=== PATIENT | female | born 1940 | race Caucasian/White ===

== ENCOUNTER 2020-04-23 11:04 | Inpatient (IN) | payer MEDICARE ==
[~2020-04-23] VITALS: Ht 162.6 cm; Wt 104.3 kg
[2020-04-23] MEDS ORDERED: LACTATED RINGER'S 1,000 ML INJ ONE (11:15)
[2020-04-23 11:36] LABS: BASOPHILS # (AUTO) 0.1 (0.0-0.1); BASOPHILS % 0.5 % (0.0-1.0); EOSINOPHILS # (AUTO) 0.7 (0.0-0.4); EOSINOPHILS % 6.3 % (0.0-6.0); HEMATOCRIT 44.2 % (34.2-44.1); HEMOGLOBIN 14.8 g/dL (12.0-16.0); LYMPHOCYTES % 9.1 % (18.0-39.1); MEAN CORPUSCULAR HEMOGLOBIN 31.4 pg (28-32); MEAN CORPUSCULAR HGB CONC 33.5 g/dL (31-35); MEAN CORPUSCULAR VOLUME 93.8 fL (81-99); MONOCYTES # (AUTO) 0.9 (0.2-0.8); MONOCYTES % 8.8 % (4.4-11.3); NEUTROPHILS # (AUTO) 7.9 (2.1-6.9); NEUTROPHILS % 74.8 % (38.7-80.0); PLATELET COUNT 261 x10e3/uL (140-360); RED BLOOD COUNT 4.71 x10e6/uL (3.6-5.1); RED CELL DISTRIBUTION WIDTH 13.4 % (11.7-14.4)
[2020-04-23] MEDS ORDERED: CEFTRIAXONE SOD 1 GM 50 ML IV ONE (11:45)
[2020-04-23 11:48] LABS: INR 0.92; PROTHROMBIN TIME 12.9 seconds (11.9-14.5)
[2020-04-23 11:58] LABS: ALBUMIN 4.1 g/dL (3.5-5.0); ALBUMIN/GLOBULIN RATIO 0.9 (0.8-2.0); ANION GAP 18.3 mmol/L (8-16); CALCIUM 10.5 mg/dL (8.4-10.2); CREATININE, SERUM 1.01 mg/dL (0.57-1.11); POTASSIUM 4.3 mmol/L (3.5-5.1)
[2020-04-23 11:58] LABS: CLARITY,URINE CLEAR (CLEAR); COLOR,URINE YELLOW (YELLOW); KETONES,URINE NEGATIVE (NEGATIVE); LEUKOCYTE ESTERASE ,URINE NEGATIVE (NEGATIVE); NITRITE,URINE NEGATIVE (NEGATIVE); PROTEIN,URINE DIPSTICK 2+ (NEGATIVE); URINE UROBILINOGEN 0.2 mg/dL (0.2 - 1)
[2020-04-23 12:00] LABS: BACTERIA,URINE RARE /HPF; EPITHELIAL CELLS,URINE FEW /LPF; MUCUS,URINE FEW (RARE); TRANSITIONAL EPI CELLS,URINE FEW
[2020-04-23] MEDS ORDERED: CEFTRIAXONE SOD 1 GM in SODIUM CHLORIDE 0.9% 50ML 50 ML IV ONE (12:00)
[2020-04-23] MEDS: SODIUM CHLORIDE 0.9% 1000ML 1,000 ML IV SCH ×2 (14:05→15:48)
[2020-04-23 16:11] VITALS: BP 177/79
[2020-04-23] MEDS ORDERED: ULTRAM50 MG PO (16:29)
[2020-04-23] MEDS ORDERED: ATORVASTATIN CA20 MG PO (16:29)
[2020-04-23] MEDS ORDERED: HYDROCHLOROTHIA25 MG PO (16:29)
[2020-04-23] MEDS ORDERED: OXYBUTYNIN CHLOR5 M1 PO (16:29)
[2020-04-23] MEDS ORDERED: CHONDROITIN SU100 GM PO (16:29)
[2020-04-23] MEDS ORDERED: ASPIRIN CHEW81 MG PO (16:29)
[2020-04-23] MEDS ORDERED: ZESTRIL40 MG PO (16:29)
[2020-04-23] MEDS ORDERED: DEPAKOTE ER500 MG PO (16:29)
[2020-04-23] MEDS ORDERED: AMLODIPINE BESY10 MG PO (16:29)
[2020-04-23] MEDS ORDERED: LISINOPRIL20 MG PO (16:29)
[2020-04-23] MEDS ORDERED: MACROBID 100 M100 MG PO (16:29)
[2020-04-23] MEDS ORDERED: OLANZAPINE5 MG PO (16:29)
[2020-04-23] MEDS ORDERED: PROPRANOLOL HCL40 MG PO (16:29)
[2020-04-23] MEDS ORDERED: NAMENDA10 MG PO (16:29)
[2020-04-23 16:31] VITALS: BP 177/79
[2020-04-23] MEDS: PROPRANOLOL HCL 40 MG TAB PO SCH (17:29)
[2020-04-23] MEDS: TRAMADOL HCL 50 MG TAB PO PRN (17:29)
[2020-04-23] MEDS ORDERED: ACETAMINOPHEN 325 MG TAB PO PRN (18:45)
[2020-04-23] MEDS ORDERED: ONDANSETRON HCL INJ 2MG/ML 2ML 2 MG/ML VIAL IV PRN (19:30)
[2020-04-23] MEDS ORDERED: HYDRALAZINE HCL 20 MG/ML VIAL IV PRN (19:30)
[2020-04-23] MEDS ORDERED: CEFTRIAXONE SOD 1 GM in SODIUM CHLORIDE 0.9% 50ML 50 ML IV SCH (19:45)
[2020-04-23 20:14] VITALS: BP 140/75
[2020-04-23 20:24] VITALS: BP 140/75
[2020-04-23] MEDS: DEPAKOTE DELAYED-RELEASE TAB 500 MG PO SCH (21:05)
[2020-04-23] MEDS: OXYBUTYNIN CHLORIDE XL 5 MG TAB PO SCH (21:05)
[2020-04-23] MEDS: MEMANTINE 10 MG TAB PO SCH (21:05)
[2020-04-23] MEDS: ATORVASTATIN 20 MG TAB PO SCH (21:05)
[2020-04-23] MEDS: LISINOPRIL 20 MG TAB PO SCH (21:05)
[2020-04-23] MEDS: OLANZAPINE 5 MG TAB PO SCH (21:06)
[2020-04-24] VITALS (8 sets, daily range): BP systolic 109–156; BP diastolic 48–84
[2020-04-24] MEDS: CEFTRIAXONE SOD 1 GM in SODIUM CHLORIDE 0.9% 50ML 50 ML IV SCH (08:19)
[2020-04-24] MEDS: ASPIRIN 81 MG CHEW TAB PO SCH (08:28)
[2020-04-24] MEDS: PROPRANOLOL HCL 40 MG TAB PO SCH ×2 (08:28→16:59)
[2020-04-24] MEDS: AMLODIPINE BESYLATE 10 MG TAB PO SCH (08:28)
[2020-04-24] MEDS: HYDROCHLOROTHIAZIDE 25 MG TAB PO SCH (08:28)
[2020-04-24] MEDS: DEPAKOTE DELAYED-RELEASE TAB 500 MG PO SCH ×3 (08:28→21:31)
[2020-04-24] MEDS ORDERED: LISINOPRIL 20 MG TAB PO SCH (09:00)
[2020-04-24] MEDS ORDERED: FAMOTIDINE 20 MG TAB PO ONE (14:15)
[2020-04-24] MEDS ORDERED: SODIUM CHLORIDE 0.9% 1000ML 1,000 ML IV ONE (15:30)
[2020-04-24] MEDS ORDERED: IOPAMIDOL 370 MG/ML 200 ML INFUS..BTL INJ ONE ×2 (16:08→17:24)
[2020-04-24] MEDS ORDERED: SODIUM CHLORIDE 0.9% 50ML 50 ML ONE ×2 (16:08→17:24)
[2020-04-24 16:09] LABS: AMYLASE 33 U/L (25-125); LIPASE 10 U/L (8-78)
[2020-04-24] MEDS ORDERED: ONDANSETRON HCL 4 MG ORAL DISINTEGRATING TAB PO PRN (19:15)
[2020-04-24] MEDS: OLANZAPINE 5 MG TAB PO SCH (21:31)
[2020-04-24] MEDS: ATORVASTATIN 20 MG TAB PO SCH (21:31)
[2020-04-24] MEDS: MEMANTINE 10 MG TAB PO SCH (21:31)
[2020-04-24] MEDS: OXYBUTYNIN CHLORIDE XL 5 MG TAB PO SCH (21:31)
[2020-04-24] MEDS: LISINOPRIL 20 MG TAB PO SCH (21:32)
[2020-04-25] VITALS (8 sets, daily range): BP systolic 122–157; BP diastolic 54–85
[2020-04-25] MEDS: TRAMADOL HCL 50 MG TAB PO PRN (04:30)
[2020-04-25 05:03] LABS: BASOPHILS # (AUTO) 0.1 (0.0-0.1); BASOPHILS % 1.1 % (0.0-1.0); EOSINOPHILS # (AUTO) 0.8 (0.0-0.4); EOSINOPHILS % 10.4 % (0.0-6.0); HEMATOCRIT 38.4 % (34.2-44.1); HEMOGLOBIN 12.8 g/dL (12.0-16.0); LYMPHOCYTES # (AUTO) 2.1 (1.0-3.2); LYMPHOCYTES % 28.4 % (18.0-39.1); MEAN CORPUSCULAR HEMOGLOBIN 31.4 pg (28-32); MEAN CORPUSCULAR HGB CONC 33.3 g/dL (31-35); MEAN CORPUSCULAR VOLUME 94.3 fL (81-99); MONOCYTES # (AUTO) 0.8 (0.2-0.8); MONOCYTES % 11.5 % (4.4-11.3); NEUTROPHILS # (AUTO) 3.5 (2.1-6.9); NEUTROPHILS % 48.3 % (38.7-80.0); PLATELET COUNT 222 x10e3/uL (140-360); RED BLOOD COUNT 4.07 x10e6/uL (3.6-5.1); RED CELL DISTRIBUTION WIDTH 13.5 % (11.7-14.4)
[2020-04-25 05:20] LABS: ANION GAP 16.9 mmol/L (8-16); CALCIUM 8.9 mg/dL (8.4-10.2); CREATININE, SERUM 1.02 mg/dL (0.57-1.11); MAGNESIUM 1.6 MG/DL (1.3-2.1); PHOSPHORUS 4.1 MG/DL (2.3-4.7); POTASSIUM 3.9 mmol/L (3.5-5.1)
[2020-04-25] MEDS ORDERED: MAGNESIUM SULF 1GRAM/DEXTROSE 100 ML IV ONE (08:00)
[2020-04-25] MEDS: CEFTRIAXONE SOD 1 GM in SODIUM CHLORIDE 0.9% 50ML 50 ML IV SCH (09:04)
[2020-04-25] MEDS: ASPIRIN 81 MG CHEW TAB PO SCH (09:07)
[2020-04-25] MEDS: DEPAKOTE DELAYED-RELEASE TAB 500 MG PO SCH ×3 (09:07→21:03)
[2020-04-25] MEDS: PROPRANOLOL HCL 40 MG TAB PO SCH ×2 (09:08→16:55)
[2020-04-25] MEDS: HYDROCHLOROTHIAZIDE 25 MG TAB PO SCH (09:08)
[2020-04-25] MEDS: AMLODIPINE BESYLATE 10 MG TAB PO SCH (09:11)
[2020-04-25] MEDS ORDERED: GADOBENATE DIMEGLUMINE 1 ML IV ONE (10:24)
[2020-04-25] MEDS: MEMANTINE 10 MG TAB PO SCH (21:03)
[2020-04-25] MEDS: ATORVASTATIN 20 MG TAB PO SCH (21:03)
[2020-04-25] MEDS: OLANZAPINE 5 MG TAB PO SCH (21:03)
[2020-04-25] MEDS: OXYBUTYNIN CHLORIDE XL 5 MG TAB PO SCH (21:03)
[2020-04-25] MEDS: LISINOPRIL 20 MG TAB PO SCH (21:04)
[2020-04-26] VITALS (9 sets, daily range): BP systolic 114–166; BP diastolic 53–91
[2020-04-26 06:37] LABS: BASOPHILS # (AUTO) 0.1 (0.0-0.1); BASOPHILS % 0.8 % (0.0-1.0); EOSINOPHILS # (AUTO) 0.8 (0.0-0.4); EOSINOPHILS % 11.3 % (0.0-6.0); HEMATOCRIT 37.5 % (34.2-44.1); HEMOGLOBIN 12.5 g/dL (12.0-16.0); LYMPHOCYTES # (AUTO) 1.9 (1.0-3.2); LYMPHOCYTES % 27.1 % (18.0-39.1); MEAN CORPUSCULAR HEMOGLOBIN 31.3 pg (28-32); MEAN CORPUSCULAR HGB CONC 33.3 g/dL (31-35); MEAN CORPUSCULAR VOLUME 93.8 fL (81-99); MONOCYTES # (AUTO) 0.9 (0.2-0.8); NEUTROPHILS # (AUTO) 3.5 (2.1-6.9); NEUTROPHILS % 48.4 % (38.7-80.0); PLATELET COUNT 188 x10e3/uL (140-360); RED CELL DISTRIBUTION WIDTH 13.3 % (11.7-14.4)
[2020-04-26 07:18] LABS: ANION GAP 15.9 mmol/L (8-16); BLOOD UREA NITROGEN 21 mg/dL (7-26); BUN/CREATININE RATIO 23 (6-25); CALCIUM 8.7 mg/dL (8.4-10.2); CARBON DIOXIDE 25 mmol/L (22-29); CHLORIDE 99 mmol/L (98-107); EST GLOMERULAR FILTRATION RATE > 60 ML/MIN (60-); GLUCOSE 100 mg/dL (74-118); MAGNESIUM 1.9 MG/DL (1.3-2.1); POTASSIUM 3.9 mmol/L (3.5-5.1); SODIUM 136 mmol/L (136-145)
[2020-04-26] MEDS: CEFTRIAXONE SOD 1 GM in SODIUM CHLORIDE 0.9% 50ML 50 ML IV SCH (07:55)
[2020-04-26] MEDS: HYDROCHLOROTHIAZIDE 25 MG TAB PO SCH (07:56)
[2020-04-26] MEDS: AMLODIPINE BESYLATE 10 MG TAB PO SCH (07:56)
[2020-04-26] MEDS: PROPRANOLOL HCL 40 MG TAB PO SCH ×2 (07:56→16:15)
[2020-04-26] MEDS: ASPIRIN 81 MG CHEW TAB PO SCH (07:56)
[2020-04-26] MEDS: DEPAKOTE DELAYED-RELEASE TAB 500 MG PO SCH ×3 (07:56→21:00)
[2020-04-26] MEDS: TRAMADOL HCL 50 MG TAB PO PRN (11:02)
[2020-04-26] MEDS ORDERED: OLANZAPINE 5 MG TAB PO PRN (14:15)
[2020-04-26] MEDS: LISINOPRIL 20 MG TAB PO SCH (21:00)
[2020-04-26] MEDS: OLANZAPINE 5 MG TAB PO SCH (21:00)
[2020-04-26] MEDS: MEMANTINE 10 MG TAB PO SCH (21:00)
[2020-04-26] MEDS: OXYBUTYNIN CHLORIDE XL 5 MG TAB PO SCH (21:00)
[2020-04-26] MEDS: ATORVASTATIN 20 MG TAB PO SCH (21:00)
[2020-04-27] VITALS (7 sets, daily range): BP systolic 127–136; BP diastolic 53–84
[2020-04-27 06:56] LABS: BASOPHILS # (AUTO) 0.1 (0.0-0.1); BASOPHILS % 0.7 % (0.0-1.0); EOSINOPHILS # (AUTO) 0.8 (0.0-0.4); EOSINOPHILS % 11.5 % (0.0-6.0); HEMATOCRIT 38.5 % (34.2-44.1); HEMOGLOBIN 12.7 g/dL (12.0-16.0); LYMPHOCYTES # (AUTO) 2.5 (1.0-3.2); LYMPHOCYTES % 36.2 % (18.0-39.1); MEAN CORPUSCULAR HEMOGLOBIN 31.3 pg (28-32); MEAN CORPUSCULAR VOLUME 94.8 fL (81-99); MONOCYTES # (AUTO) 0.8 (0.2-0.8); NEUTROPHILS # (AUTO) 2.7 (2.1-6.9); NEUTROPHILS % 40.3 % (38.7-80.0); PLATELET COUNT 243 x10e3/uL (140-360); RED BLOOD COUNT 4.06 x10e6/uL (3.6-5.1); RED CELL DISTRIBUTION WIDTH 13.3 % (11.7-14.4)
[2020-04-27 07:12] LABS: CALCIUM 9.1 mg/dL (8.4-10.2); CREATININE, SERUM 1.06 mg/dL (0.57-1.11)
[2020-04-27] MEDS: ASPIRIN 81 MG CHEW TAB PO SCH (08:29)
[2020-04-27] MEDS: PROPRANOLOL HCL 40 MG TAB PO SCH ×2 (08:29→16:38)
[2020-04-27] MEDS: SERTRALINE HCL 50 MG TAB PO SCH (08:29)
[2020-04-27] MEDS: AMLODIPINE BESYLATE 10 MG TAB PO SCH (08:29)
[2020-04-27] MEDS: CEFTRIAXONE SOD 1 GM in SODIUM CHLORIDE 0.9% 50ML 50 ML IV SCH (08:29)
[2020-04-27] MEDS: DEPAKOTE DELAYED-RELEASE TAB 500 MG PO SCH ×3 (08:29→20:32)
[2020-04-27] MEDS: HYDROCHLOROTHIAZIDE 25 MG TAB PO SCH (08:29)
[2020-04-27] MEDS: LISINOPRIL 20 MG TAB PO SCH (20:32)
[2020-04-27] MEDS: OXYBUTYNIN CHLORIDE XL 5 MG TAB PO SCH (20:32)
[2020-04-27] MEDS: OLANZAPINE 5 MG TAB PO SCH (20:32)
[2020-04-27] MEDS: MEMANTINE 10 MG TAB PO SCH (20:32)
[2020-04-27] MEDS: ATORVASTATIN 20 MG TAB PO SCH (20:32)
[2020-04-28] VITALS (8 sets, daily range): BP systolic 136–155; BP diastolic 61–81
[2020-04-28 06:30] LABS: BASOPHILS # (AUTO) 0.1 (0.0-0.1); BASOPHILS % 0.7 % (0.0-1.0); EOSINOPHILS # (AUTO) 0.8 (0.0-0.4); EOSINOPHILS % 11.8 % (0.0-6.0); HEMATOCRIT 38.9 % (34.2-44.1); HEMOGLOBIN 12.8 g/dL (12.0-16.0); LYMPHOCYTES # (AUTO) 2.5 (1.0-3.2); LYMPHOCYTES % 35.8 % (18.0-39.1); MEAN CORPUSCULAR HEMOGLOBIN 31.2 pg (28-32); MEAN CORPUSCULAR HGB CONC 32.9 g/dL (31-35); MEAN CORPUSCULAR VOLUME 94.9 fL (81-99); MONOCYTES # (AUTO) 0.6 (0.2-0.8); MONOCYTES % 9.2 % (4.4-11.3); NEUTROPHILS # (AUTO) 2.9 (2.1-6.9); NEUTROPHILS % 42.2 % (38.7-80.0); PLATELET COUNT 259 x10e3/uL (140-360); RED CELL DISTRIBUTION WIDTH 13.2 % (11.7-14.4)
[2020-04-28 07:03] LABS: ANION GAP 15.9 mmol/L (8-16); BLOOD UREA NITROGEN 29 mg/dL (7-26); BUN/CREATININE RATIO 33 (6-25); CARBON DIOXIDE 26 mmol/L (22-29); CHLORIDE 98 mmol/L (98-107); CREATININE, SERUM 0.89 mg/dL (0.57-1.11); EST GLOMERULAR FILTRATION RATE > 60 ML/MIN (60-); GLUCOSE 99 mg/dL (74-118); POTASSIUM 3.9 mmol/L (3.5-5.1); SODIUM 136 mmol/L (136-145)
[2020-04-28 07:24] LABS: THYROID STIMULATING HORMONE 2.891 uIU/mL (0.350-4.940)
[2020-04-28] MEDS: AMLODIPINE BESYLATE 10 MG TAB PO SCH (08:11)
[2020-04-28] MEDS: ASPIRIN 81 MG CHEW TAB PO SCH (08:11)
[2020-04-28] MEDS: CEFTRIAXONE SOD 1 GM in SODIUM CHLORIDE 0.9% 50ML 50 ML IV SCH (08:11)
[2020-04-28] MEDS: SERTRALINE HCL 50 MG TAB PO SCH (08:11)
[2020-04-28] MEDS: HYDROCHLOROTHIAZIDE 25 MG TAB PO SCH (08:11)
[2020-04-28] MEDS: DEPAKOTE DELAYED-RELEASE TAB 500 MG PO SCH ×3 (08:11→20:49)
[2020-04-28] MEDS: PROPRANOLOL HCL 40 MG TAB PO SCH ×2 (08:11→16:34)
[2020-04-28] MEDS: OLANZAPINE 5 MG TAB PO SCH (20:48)
[2020-04-28] MEDS: ATORVASTATIN 20 MG TAB PO SCH (20:49)
[2020-04-28] MEDS: MEMANTINE 10 MG TAB PO SCH (20:49)
[2020-04-28] MEDS: LISINOPRIL 20 MG TAB PO SCH (20:49)
[2020-04-28] MEDS: OXYBUTYNIN CHLORIDE XL 5 MG TAB PO SCH (20:49)
[2020-04-28] MEDS ORDERED: QUESTRAN PACKET4 GM PO (20:51)
[2020-04-29] VITALS (8 sets, daily range): BP systolic 121–151; BP diastolic 58–84
[2020-04-29 05:28] LABS: BASOPHILS # (AUTO) 0.1 (0.0-0.1); BASOPHILS % 1.2 % (0.0-1.0); EOSINOPHILS # (AUTO) 0.7 (0.0-0.4); EOSINOPHILS % 9.4 % (0.0-6.0); HEMATOCRIT 38.8 % (34.2-44.1); HEMOGLOBIN 12.7 g/dL (12.0-16.0); LYMPHOCYTES # (AUTO) 2.3 (1.0-3.2); LYMPHOCYTES % 31.9 % (18.0-39.1); MEAN CORPUSCULAR HEMOGLOBIN 31.1 pg (28-32); MEAN CORPUSCULAR HGB CONC 32.7 g/dL (31-35); MEAN CORPUSCULAR VOLUME 94.9 fL (81-99); MONOCYTES # (AUTO) 0.6 (0.2-0.8); MONOCYTES % 8.6 % (4.4-11.3); NEUTROPHILS # (AUTO) 3.5 (2.1-6.9); NEUTROPHILS % 48.5 % (38.7-80.0); PLATELET COUNT 270 x10e3/uL (140-360); RED BLOOD COUNT 4.09 x10e6/uL (3.6-5.1); RED CELL DISTRIBUTION WIDTH 13.2 % (11.7-14.4)
[2020-04-29 05:50] LABS: BLOOD UREA NITROGEN 22 mg/dL (7-26); BUN/CREATININE RATIO 28 (6-25); CALCIUM 9.3 mg/dL (8.4-10.2); CARBON DIOXIDE 28 mmol/L (22-29); CHLORIDE 101 mmol/L (98-107); CREATININE, SERUM 0.78 mg/dL (0.57-1.11); EST GLOMERULAR FILTRATION RATE > 60 ML/MIN (60-); GLUCOSE 107 mg/dL (74-118); SODIUM 140 mmol/L (136-145)
[2020-04-29] MEDS: ASPIRIN 81 MG CHEW TAB PO SCH (09:00)
[2020-04-29] MEDS: HYDROCHLOROTHIAZIDE 25 MG TAB PO SCH (09:00)
[2020-04-29] MEDS: CEFTRIAXONE SOD 1 GM in SODIUM CHLORIDE 0.9% 50ML 50 ML IV SCH (10:00)
[2020-04-29] MEDS: DEPAKOTE DELAYED-RELEASE TAB 500 MG PO SCH ×3 (10:00→20:41)
[2020-04-29] MEDS: AMLODIPINE BESYLATE 10 MG TAB PO SCH (10:00)
[2020-04-29] MEDS: PROPRANOLOL HCL 40 MG TAB PO SCH ×2 (10:00→16:04)
[2020-04-29] MEDS: SERTRALINE HCL 50 MG TAB PO SCH (10:00)
[2020-04-29] MEDS: OXYBUTYNIN CHLORIDE XL 5 MG TAB PO SCH (20:42)
[2020-04-29] MEDS: ATORVASTATIN 20 MG TAB PO SCH (20:42)
[2020-04-29] MEDS: OLANZAPINE 5 MG TAB PO SCH (20:42)
[2020-04-29] MEDS: LISINOPRIL 20 MG TAB PO SCH (20:42)
[2020-04-29] MEDS: MEMANTINE 10 MG TAB PO SCH (20:42)
[2020-04-30] VITALS (8 sets, daily range): BP systolic 119–142; BP diastolic 63–73
[2020-04-30] MEDS: DEPAKOTE DELAYED-RELEASE TAB 500 MG PO SCH ×2 (08:02→15:18)
[2020-04-30] MEDS: AMLODIPINE BESYLATE 10 MG TAB PO SCH (08:02)
[2020-04-30] MEDS: HYDROCHLOROTHIAZIDE 25 MG TAB PO SCH (08:02)
[2020-04-30] MEDS: ASPIRIN 81 MG CHEW TAB PO SCH (08:02)
[2020-04-30] MEDS: PROPRANOLOL HCL 40 MG TAB PO SCH ×2 (08:02→16:28)
[2020-04-30] MEDS: SERTRALINE HCL 50 MG TAB PO SCH (08:02)
[2020-04-30] MEDS: CEFTRIAXONE SOD 1 GM in SODIUM CHLORIDE 0.9% 50ML 50 ML IV SCH (08:03)
[2020-04-30] MEDS ORDERED: CEFTRIAXONE1 GM IV (16:32)
[2020-04-30] MEDS ORDERED: ACETAMINOPHEN325 M1 PO (16:32)
[2020-04-30] MEDS ORDERED: ZOLOFT50 MG PO (16:32)
[2020-04-30] MEDS ORDERED: ZYPREXA5 MG PO (16:32)
[2020-04-30] MEDS ORDERED: ONDANSETRON ODT4 MG PO (16:32)
[2020-05-01] MEDS ORDERED: CHOLESTYRAMINE 4 GM PACKET PO SCH (09:00)
== END 2020-04-30 21:19 | DRG 871 ==
LOC: ER 11:16 → ERHOLD 13:27 → ER 14:35 → MED/SURG 15:31
PROVIDERS: ADMIT Internal Medicine; ATTEND Internal Medicine
DX: A41.9 Sepsis, unspecified organism (principal); G93.41 Metabolic encephalopathy; N39.0 Urinary tract infection, site not specified; N17.9 Acute kidney failure, unspecified; G30.9 Alzheimer's disease, unspecified; F02.80 Dementia in other diseases classified elsewhere, unspecified severity, without behavioral disturbance, psychotic disturbance, mood disturbance, and anxiety; S30.0XXA Contusion of lower back and pelvis, initial encounter; D64.9 Anemia, unspecified; E83.52 Hypercalcemia; E83.42 Hypomagnesemia; F25.0 Schizoaffective disorder, bipolar type; W18.30XA Fall on same level, unspecified, initial encounter; Y92.019 Unspecified place in single-family (private) house as the place of occurrence of the external cause; E66.9 Obesity, unspecified; Z88.2 Allergy status to sulfonamides; Z91.013 Allergy to seafood; Z91.81 History of falling; Z68.39 Body mass index [BMI] 39.0-39.9, adult; Z20.822 Contact with and (suspected) exposure to COVID-19; I12.9 Hypertensive chronic kidney disease with stage 1 through stage 4 chronic kidney disease, or unspecified chronic kidney disease; N18.30 Chronic kidney disease, stage 3 unspecified
CPT/HCPCS: 36415; 70450; 71045; 72158; 74177; 80048; 80053; 80164; 81001; 82140; 82150; 82948; 83605; 83690; 83735; 84100; 84443; 85025; 85610; 87040; 87086; 93005; 96361; 97139; 99251; 99284; J0696; J3475; J7030; J7121; Q9967; U0002